=== PATIENT | female | born 1975 | race Native Hawaiian/Other Pacific Islander ===

== ENCOUNTER 2018-01-31 16:09 | Outpatient (CLI) | payer BC | END 2018-01-31 20:46 | disposition home or self-care (01) | LOC: MAMMO 16:09 | DX: Z12.31 Encounter for screening mammogram for malignant neoplasm of breast (principal) ==

== ENCOUNTER 2018-02-07 15:55 | Outpatient (CLI) | payer BC | END 2018-02-07 18:54 | disposition home or self-care (01) | LOC: MAMMO 15:55 | DX: R92.2 Inconclusive mammogram (principal) ==

== ENCOUNTER 2019-03-18 15:42 | Outpatient (CLI) | payer BC | END 2019-03-18 21:06 | disposition home or self-care (01) | LOC: MAMMO 15:42 | DX: Z12.31 Encounter for screening mammogram for malignant neoplasm of breast (principal) ==

== ENCOUNTER 2020-06-18 09:31 | Outpatient (CLI) | payer BC | END 2020-06-18 21:10 | disposition home or self-care (01) | LOC: MAMMO 09:31 | PROVIDERS: ATTEND Obstetrics & Gynecology | DX: Z12.31 Encounter for screening mammogram for malignant neoplasm of breast (principal) ==

== ENCOUNTER 2021-06-23 10:47 | Outpatient (CLI) | payer BC | END 2021-06-23 19:22 | disposition home or self-care (01) | LOC: MAMMO 10:47 | PROVIDERS: ATTEND Obstetrics & Gynecology | DX: Z12.31 Encounter for screening mammogram for malignant neoplasm of breast (principal) ==

== ENCOUNTER 2022-06-29 09:23 | Outpatient (CLI) | payer BC | END 2022-06-29 19:13 | disposition home or self-care (01) | LOC: MAMMO 09:23 | PROVIDERS: ATTEND Obstetrics & Gynecology | DX: Z12.31 Encounter for screening mammogram for malignant neoplasm of breast (principal) ==